=== PATIENT | female | born 1965 | race African-American/Black ===

== ENCOUNTER 2024-09-14 16:22 | Inpatient (IN) | payer MEDICAID ==
[~2024-09-14] VITALS: Ht 170.2 cm; Wt 60.3 kg
[2024-09-14 16:27] VITALS: O2SAT 98
[2024-09-14] MEDS: SODIUM CHLORIDE 0.9% 1,000 ML IV ONE (17:59)
[2024-09-14 18:36] LABS: HEMATOCRIT. 38.7 % (36.0-48.0); HEMOGLOBIN. 12.6 g/dL (12.0-16.0); MEAN CORPUSCULAR HEMOGLOBIN 28.8 pg (28.0-32.0); MEAN CORPUSCULAR HGB CONC 32.6 g/dL (31.0-37.0); MEAN CORPUSCULAR VOLUME 88.5 fL (81.0-99.0); MEAN PLATELET VOLUME 8.1 fl (7.4-10.4); PLATELET 243 x1000/uL (130-400); RED BLOOD CELL COUNT 4.37 mill/uL (4.2-5.4); RED CELL DISTRIBUTION WIDTH 13.1 % (11.6-14.6); WHITE BLOOD COUNT 12.6 x1000/uL (4.5-11.0)
[2024-09-14 18:39] LABS: DIFFERENTIAL COMMENT 1
[2024-09-14 18:59] LABS: CHLORIDE 106 mEq/L (98-107); POTASSIUM 3.5 mEq/L (3.5-5.1); SODIUM 141 mEq/L (136-145)
[2024-09-14 19:00] LABS: CALCIUM 10.6 mg/dL (8.7-10.4); CARBON DIOXIDE 20 mEq/L (21-32)
[2024-09-14 19:05] LABS: CREATININE 1.5 mg/dL (0.6-1.0); ETHANOL BLOOD < 10 mg/dL (<10); GLUCOSE 109 mg/dL (70-105); UREA NITROGEN BLOOD 14 mg/dL (9-23)
[2024-09-14 19:07] LABS: ALANINE AMINOTRANSFERASE 33 IU/L (10-49); ALBUMIN 4.8 g/dL (3.2-4.8); ASPARTATE AMINOTRANSFERASE 24 IU/L (<34); BILIRUBIN DIRECT 0.1 mg/dL (<=3.0); BILIRUBIN TOTAL 0.3 mg/dL (0.1-1.0); CREATINE KINASE 417 IU/L (34-145); PROTEIN TOTAL 7.5 g/dL (6.0-8.3); TROPONIN I HIGH SENSITIVITY 36 ng/L (3.0-34)
[2024-09-14 19:08] LABS: INR 1.1; PROTHROMBIN TIME 11.4 sec (9.6-11.0)
[2024-09-14 19:10] LABS: PLATELET ESTIMATE NORMAL
[2024-09-14] MEDS: ACETAMINOPHEN 325MG TABLET PO ONE (19:24)
[2024-09-14] MEDS: CEFTRIAXONE 1GM/50ML 50 ML IV ONE (20:07)
[2024-09-14 21:14] LABS: TROPONIN I HIGH SENSITIVITY 64 ng/L (3.0-34)
[2024-09-14] MEDS: ASPIRIN 325MG EC TABLET PO ONE (21:33)
[2024-09-15 01:02] VITALS: BP 146/89; PULSE 103; RESP 19; TEMP 36.1
[2024-09-15 01:06] LABS: *AMPHETAMINES SCREEN URINE NEGATIVE (NEGATIVE); *BARBITURATES SCREEN URINE NEGATIVE (NEGATIVE); *BENZODIAZEPINES SCREEN URINE NEGATIVE (NEGATIVE); *COCAINE SCREEN URINE NEGATIVE (NEGATIVE)
[2024-09-15 01:07] LABS: CANNABINOID URINE SCREEN NEGATIVE (NEGATIVE); ECSTASY MDMA SCREEN URINE NEGATIVE (NEGATIVE); METHADONE URINE SCREEN NEGATIVE (NEGATIVE); OPIATES URINE SCREEN NEGATIVE (NEGATIVE); PHENCYCLIDINE URINE SCREEN NEGATIVE (NEGATIVE)
[2024-09-15 01:12] LABS: CLARITY URINE CLOUDY (CLEAR); COLOR URINE YELLOW (YELLOW); PH URINE 5.5 (4.5-8.0); SPECIFIC GRAVITY URINE 1.013 (1.005-1.030)
[2024-09-15 01:13] LABS: GLUCOSE URINE NEGATIVE (NEGATIVE); KETONES URINE NEGATIVE (NEGATIVE); LEUKOCYTE ESTERASE URINE NEGATIVE (NEGATIVE); NITRITE URINE NEGATIVE (NEGATIVE); OCCULT BLOOD URINE 3+ (NEGATIVE); PROTEIN URINE 2+ (NEGATIVE); UROBILINOGEN URINE 0.2 E.U./dL (0.2-1.0)
[2024-09-15 01:25] LABS: AMORPHOUS SEDIMENT URINE 2+ /lpf; BACTERIA URINE TRACE; RBC URINE NONE SEEN /hpf (0-2); SQUAMOUS EPITHELIAL CELL URINE 1+ /lpf (RARE/1+); WBC URINE 0-2 /hpf (0-2)
[2024-09-15 04:00] VITALS: BP 120/78; PULSE 80; RESP 19; TEMP 36.3; O2SAT 96
[2024-09-15] MEDS: PANTOPRAZOLE 40MG DR TABLET PO SCH (06:37)
[2024-09-15 08:00] VITALS: BP 112/63; PULSE 79; RESP 17; TEMP 36.4; O2SAT 96
[2024-09-15] MEDS: LOSARTAN 100 MG TABLET PO SCH (09:00)
[2024-09-15] MEDS: ASPIRIN 81MG TABLET PO SCH (09:07)
[2024-09-15 12:00] VITALS: BP 119/71; PULSE 94; RESP 18; TEMP 36.4; O2SAT 98
[2024-09-15] MEDS ORDERED: ENOXAPARIN 60MG/0.6ML SYR SUBCUT SCH (14:30)
[2024-09-15 16:00] VITALS: BP 100/61; PULSE 74; RESP 18; TEMP 36.5; O2SAT 97; O2SAT 98
[2024-09-15] MEDS: SODIUM CHLORIDE 0.9% 1,000 ML IV SCH (16:38)
== END 2024-09-15 20:40 | disposition short-term general hospital (02) | DRG 190 ==
LOC: ER 16:22 → 6WST 21:36 → EDBEDREQTM 21:47 → EDBEDREQ 21:47 → ENRESERV 23:25
PROVIDERS: ADMIT Internal Medicine; ATTEND Internal Medicine
DX: I21.4 Non-ST elevation (NSTEMI) myocardial infarction (principal); N17.0 Acute kidney failure with tubular necrosis; E11.9 Type 2 diabetes mellitus without complications; G90.89 Other disorders of autonomic nervous system; I10 Essential (primary) hypertension; D72.829 Elevated white blood cell count, unspecified; J44.89 Other specified chronic obstructive pulmonary disease; I25.10 Atherosclerotic heart disease of native coronary artery without angina pectoris; Z95.5 Presence of coronary angioplasty implant and graft; Z79.82 Long term (current) use of aspirin; Z87.891 Personal history of nicotine dependence
CPT/HCPCS: 36415; 71045; 73552; 80048; 80076; 80305; 80320; 81003; 82550; 83605; 83880; 84145; 84484; 85025; 93005; 96361; 96365; 99291; J0696; J7030; G0480